=== PATIENT | female | born 1945 | race Caucasian/White ===

== ENCOUNTER 2018-05-24 19:06 | Emergency (ER) | payer MEDICARE ==
[~2018-05-24] VITALS: Ht 160 cm; Wt 103.0 kg
[~2018-05-24 19:06] MED LIST: ALBU3IS INH; ALBU90OI INH; ALBUTEROL; AMLO5 PO; ASA; ASPI81EC PO; ATEN25 PO; ATEN50 PO; ATOR10 PO; ESTRADIOL; ESTROGEN PATCH; ETOD400 PO; FEXPSEER PO; FLUT.05NI; HYDACE5 PO; IBUP400; IPRAOI INH; LORA.5; META800 PO; METO100ER PO; METPRE4DP PO; MONT10T PO; NAPR500 PO; NEBI10 PO; NORETHINDRONE; OMEP20ER PO; ONDA4ODT MM; OXYACE5T PO; PRED20 PO; RANI150; RANI150 PO
[2018-05-24] MEDS ORDERED: AMLO10 PO (19:30)
[2018-05-24] MEDS ORDERED: PRED20 PO (21:18)
[2018-05-24] MEDS ORDERED: ALBU90OI INH (21:18)
== END 2018-05-24 21:40 | disposition home or self-care (01) ==
LOC: ER 19:06
DX: J45.909 Unspecified asthma, uncomplicated (principal); J70.5 Respiratory conditions due to smoke inhalation; I10 Essential (primary) hypertension; Z88.8 Allergy status to other drugs, medicaments and biological substances; Z91.048 Other nonmedicinal substance allergy status; Z79.899 Other long term (current) drug therapy; Z79.82 Long term (current) use of aspirin
CPT/HCPCS: 71046; 94644; 99285-25

== ENCOUNTER 2019-05-25 21:45 | Emergency (ER) | payer MEDICARE ==
[~2019-05-25] VITALS: Ht 160 cm; Wt 104.3 kg
[~2019-05-25 21:45] MED LIST changes: +AMLO10 PO
[2019-05-25] MEDS ORDERED: Prednisone20 MG PO (23:17)
[2019-05-25] MEDS ORDERED: KETO10 PO (23:17)
== END 2019-05-26 00:43 | disposition home or self-care (01) ==
LOC: ER 21:45
DX: M54.41 Lumbago with sciatica, right side (principal); Z88.8 Allergy status to other drugs, medicaments and biological substances; Z79.899 Other long term (current) drug therapy; Z79.82 Long term (current) use of aspirin; J45.909 Unspecified asthma, uncomplicated; I10 Essential (primary) hypertension
CPT/HCPCS: 96372; 99283-25; A9270; J3010; J7512